=== PATIENT | female | born 1955 | race Asian ===

== ENCOUNTER 2018-04-28 07:52 | Emergency (ER) | payer OTHER ==
[~2018-04-28] VITALS: Ht 165.1 cm; Wt 65.8 kg
[2018-04-28 07:54] VITALS: Ht 165.1 cm; Wt 65.8 kg
[2018-04-28 08:29] LABS: BASOPHIL % 0.3 % (0-2); PLATELET COUNT 369 x10^3mcL (130-400); RED CELL DISTRIBUTION WIDTH 12.5 % (11.5-14.5)
[2018-04-28 08:43] LABS: CALCIUM 9.3 mg/dL (8.5-10.1); CHLORIDE SERUM 104 mmol/L (98-107); CREATININE SERUM 0.7 mg/dL (0.6-1.0); GFR1 > 60 mL/min; GLUCOSE SERUM 254 mg/dL (74-106); POTASSIUM SERUM 3.7 mmol/L (3.5-5.1); SODIUM SERUM 139 mmol/L (136-145)
[2018-04-28 08:48] LABS: ALBUMIN 3.8 g/dL (3.4-5.0); ALKALINE PHOSPHATASE 106 U/L (46-116); ALT/SGPT 29 U/L (14-59); AST/SGOT 25 U/L (15-37); BILIRUBIN TOTAL 0.38 mg/dL (0.20-1.00); HDL CHOLESTEROL 52 mg/dL (40-60); MAGNESIUM 1.7 mg/dL (1.8-2.4); TOTAL PROTEIN, SERUM 7.6 g/dL (6.4-8.2)
[2018-04-28 08:59] LABS: CHOLESTEROL 281 mg/dL (<200)
[2018-04-28 11:25] VITALS: BP 179/91
== END 2018-04-28 11:41 | disposition home or self-care (01) ==
LOC: ED 07:52
PROVIDERS: Emergency Medicine
DX: R42 Dizziness and giddiness (principal); R11.2 Nausea with vomiting, unspecified; R53.1 Weakness; I10 Essential (primary) hypertension; E78.00 Pure hypercholesterolemia, unspecified; E83.42 Hypomagnesemia; E11.65 Type 2 diabetes mellitus with hyperglycemia
CPT/HCPCS: J2405; J3475; J7030; J8597